=== PATIENT | male | born 1965 | race Caucasian/White ===

== ENCOUNTER 2017-09-18 19:24 | Emergency (ER) | payer SELFPAY ==
--- NOTE | 2017-09-18 19:38 | PDOC ---
Rapid Medical Evaluation Chief Complaint: Constipation Time Seen by Provider: 09/18/17 19:36 Medical Evaluation: 09/18/17 19:40 CC: constipation and rectal pain, patient reports that he has been straining. right side pain. reports increased family stress lately. PE: patient alert ox3. Pmhx: htn, DE, diabetes. PMD: Thee PLan: UA patient to the ER for further management of care.
[2017-09-18 19:55] VITALS: BP 137/95; PULSE 90; TEMP 97.8; BMI 38.9
--- NOTE | 2017-09-18 20:21 | PDOC ---
History of Present Illness - General History Source: Patient Exam Limitations: No Limitations - History of Present Illness Initial Comments: 09/18/17 20:51 The patient is a 52 year old male with no significant PMH who presents to the emergency department with rectal pain and lower abdominal pain beginning approximately 6 days ago. The patient describes his rectal pain as an intermittent squeezing, pressure-like sensation that occasionally radiates to his back and LLQ abdominal region. He denies any modifying factors for his rectal pain. He reports he has also been constipated and has had some dysuria over the past day. The patient noted some blood spotting when wiping within the past week but denies any blood intermixed with stool. He denies any recent sexual activity. The patient denies chest pain, shortness of breath, headache and dizziness. Denies fever, chills, nausea, vomit, diarrhea and constipation. Denies frequency, urgency and hematuria. Allergies: NKA Past surgical history: None reported. Social history: No reported cigarette, alcohol, or drug use. PCP: Dr. Kingston <Jose Rafael Weiner - Last Filed: 09/18/17 21:34> <Elver Veliz - Last Filed: 09/19/17 00:11> - General Chief Complaint: Pain, Acute Stated Complaint: PAIN Time Seen by Provider: 09/18/17 19:36 Past History <Jose Rafael Weiner - Last Filed: 09/18/17 21:34> - Past Medical History Cardiac Disorders: Yes ("minor heart attack") COPD: No HTN: Yes Hypercholesterolemia: Yes - Suicide/Smoking/Psychosocial Hx Smoking History: Never smoked <Elver Veliz - Last Filed: 09/19/17 00:11> - Past Medical History Allergies/Adverse Reactions: Allergies Allergy/AdvReac Type Severity Reaction Status Date / Time No Known Allergies Allergy Verified 09/18/17 19:40 Home Medications: Ambulatory Orders Aspirin [ASA -] 81 mg PO DAILY 09/18/17 Atorvastatin Ca [Lipitor] 20 mg PO HS 09/18/17 Carvedilol [Coreg -] 12.5 mg PO BID 09/18/17 Lisinopril [Zestril] 20 mg PO DAILY 09/18/17 Review of Systems - Review of Systems Able to Perform ROS?: Yes Comments:: 09/18/17 20:52 A complete review of 10 out of 10 review of systems is taken and is negative apart from what is previously mentioned below and in the HPI. <Jose Rafael Weiner - Last Filed: 09/18/17 21:34> *Physical Exam - Vital Signs Last Vital Signs Temp Pulse Resp BP Pulse Ox 97.8 F 90 16 137/95 97 09/18/17 19:43 09/18/17 19:43 09/18/17 19:43 09/18/17 19:43 09/18/17 19:43 - Physical Exam Comments: 09/18/17 21:34 Vitals: Triage Vital signs reviewed General Appearance: no acute distress, well nourished well developed, Cardiac: Regular rate and rhythm, no murmurs, no rubs, no gallops, Lungs: Clear to auscultation bilateral, good air movement bilaterally, Abdomen: (+) LLQ tenderness. Nondistended, normal bowel sounds. Rectal: Normal, Extremities: Full range of motion to all extremities, no cyanosis, clubbing, or edema Neuro: AOX3; Cranial Nerves 2-12 grossly intact, Strength intact to all extremities, Sensation intact to all extremities Psych: normal mood, normal affect <Jose Rafael Weiner - Last Filed: 09/18/17 21:34> - Vital Signs Last Vital Signs Temp Pulse Resp BP Pulse Ox 97.8 F 90 16 137/95 97 09/18/17 19:43 09/18/17 19:43 09/18/17 19:43 09/18/17 19:43 09/18/17 19:43 <Elver Veliz - Last Filed: 09/19/17 00:11> ED Treatment Course - LABORATORY CBC & Chemistry Diagram: 09/18/17 21:15 09/18/17 21:15 <Jose Rafael Weiner - Last Filed: 09/18/17 21:34> - LABORATORY CBC & Chemistry Diagram: 09/18/17 21:15 09/18/17 22:05 <Elver Veliz - Last Filed: 09/19/17 00:11> Medical Decision Making - Medical Decision Making 09/18/17 20:52 The patient is a 52 year old male with no significant PMH who presents to the emergency department with rectal pain and lower abdominal pain beginning approximately 6 days ago. Plan: Lab: CBC, CMP, UA Radiology: Abdomen & Pelvis CT, CXR <Jose Rafael Weiner - Last Filed: 09/18/17 21:34> - Medical Decision Making No acute findings on patient's CAT scan. Labs within normal limits. At this time no acute surgical process identified correlating with patient's left lower quadrant pain Repeat examination no significant pain on exam testicular exam normal Patient has GI follow-up this week he was advised to return to the emergency department for any fever severe persistent constant pain that is worsening or for any concerns. <Elver Veliz - Last Filed: 09/19/17 00:11> *DC/Admit/Observation/Transfer - Attestations Scribe Attestion: 09/18/17 20:52 Documentation prepared by Jose Rafael Weiner, acting as medical cash poster for Elver Veliz MD. <Jose Rafael Weiner - Last Filed: 09/18/17 21:34> - Discharge Dispostion Admit: No <Elver Veliz - Last Filed: 09/19/17 00:11> Diagnosis at time of Disposition: Abdominal pain Qualifiers: Abdominal location: left lower quadrant Qualified Code(s): R10.32 - Left lower quadrant pain - Discharge Dispostion Disposition: HOME - Referrals Referrals: Masha Kingston MD [Primary Care Provider] - - Patient Instructions Printed Discharge Instructions: DI for Abdominal Pain-Adult Additional Instructions: Drink plenty of fluids. [id number] Tylenol as directed on package. 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 Return to the emergency department for any fever severe persistent constant lower abdominal pain or for any concerns. - Post Discharge Activity
[2017-09-18 21:29] LABS: BASO % 0.4 % (0-2.0); EOS % 0.8 % (0-4.5); HEMATOCRIT 46.4 % (35.4-49); HEMOGLOBIN 15.2 GM/dL (11.7-16.9); LYMPH % 29.5 % (8-40); MCH 28.6 pg (25.7-33.7); MCHC 32.8 g/dl (32.0-35.9); MEAN CELL VOLUME 87.3 fl (80-96); MEAN PLT VOLUME 8.3 fl (7.5-11.1); MONO % 7.6 % (3.8-10.2); NEUT % 61.7 % (42.8-82.8); PLATELET COUNT 221 K/MM3 (134-434); RBC 5.32 M/mm3 (4.00-5.60); RDW 13.3 % (11.9-15.9); WHITE BLOOD COUNT 8.7 K/mm3 (4.0-10.0)
[2017-09-18] MEDS ORDERED: SODIUM CHLORIDE 0.9% 1000 ML INFUS.BAG IV ONE (21:32)
[2017-09-18] MEDS ORDERED: ACETAMINOPHEN 1000 MG/100 ML VIAL (NON FORMULARY) IVPB ONE (21:32)
[2017-09-18] MEDS ORDERED: ACETAMINOPHEN INJECTION 100 ML IVPB ONE (21:52)
[2017-09-18 22:11] LABS: PH,URINE 5.5 (5.0-8.0); URINE APPEARANCE CLEAR; URINE BILIRUBIN NEGATIVE (NEGATIVE); URINE BLOOD TRACE-INTA (NEGATIVE); URINE COLOR LT. YELLOW; URINE GLUCOSE (UA) NEGATIVE (NEGATIVE); URINE KETONE NEGATIVE (NEGATIVE); URINE LEUK ESTERASE NEGATIVE (NEGATIVE); URINE NITRITE NEGATIVE (NEGATIVE); URINE PROTEIN NEGATIVE (NEGATIVE); URINE UROBILINOGEN 0.2 mg/dL (0.2-1.0)
[2017-09-18 22:38] LABS: ALBUMIN 3.3 g/dl (3.4-5.0); ALK PHOS 70 U/L (45-117); ANION GAP 7 (8-16); BILIRUBIN,TOTAL 0.5 mg/dL (0.2-1.0); BLOOD UREA NITROGEN 13 mg/dL (7-18); CALCIUM 7.7 mg/dL (8.5-10.1); CHLORIDE 107 mmol/L (98-107); CO2 26 mmol/L (21-32); CREATININE 0.7 mg/dL (0.7-1.3); GLUCOSE,RANDOM 83 mg/dL (74-106); POTASSIUM 3.3 mmol/L (3.5-5.1); SGOT/AST 10 U/L (15-37); SGPT/ALT 19 U/L (12-78); SODIUM 140 mmol/L (136-145); TOT PROT 6.3 g/dl (6.4-8.2)
== END 2017-09-19 00:27 | disposition home or self-care (01) ==
LOC: JER 19:24
PROC: 3E033NZ Introduction of Analgesics, Hypnotics, Sedatives into Peripheral Vein, Percutaneous Approach (ICD-10-PCS; principal; 2017-09-18)
DX: R10.32 Left lower quadrant pain (principal); I25.2 Old myocardial infarction; I10 Essential (primary) hypertension; E78.00 Pure hypercholesterolemia, unspecified
CPT/HCPCS: 36415; 71045-TC-FY; 74177-TC; 80053; 81003; 85025; 99282-25

== ENCOUNTER 2019-07-18 09:48 | Emergency (ER) | payer OTHER ==
[2019-07-18 10:06] VITALS: BP 138/89; PULSE 79; TEMP 98; BMI 38.0
[2019-07-18 11:13] LABS: URINE APPEARANCE CLEAR; URINE BILIRUBIN NEGATIVE (NEGATIVE); URINE COLOR YELLOW; URINE GLUCOSE (UA) NEGATIVE (NEGATIVE); URINE KETONE NEGATIVE (NEGATIVE); URINE LEUK ESTERASE NEGATIVE (NEGATIVE); URINE NITRITE NEGATIVE (NEGATIVE); URINE PROTEIN NEGATIVE (NEGATIVE); URINE UROBILINOGEN 0.2 mg/dL (0.2-1.0)
--- NOTE | 2019-07-18 11:24 | PDOC ---
*Physical Exam - Vital Signs Last Vital Signs Temp Pulse Resp BP Pulse Ox 98 F 79 17 138/89 98 07/18/19 10:03 07/18/19 10:03 07/18/19 10:03 07/18/19 10:03 07/18/19 10:03 ED Treatment Course - ADDITIONAL ORDERS Additional order review: Laboratory Results 07/18/19 11:01 Urine Color Yellow Urine Appearance Clear Urine pH 5.0 Ur Specific [place] 1.021 Urine Protein Negative Urine Glucose (UA) Negative Urine Ketones Negative Urine Blood Negative Urine Nitrite Negative Urine Bilirubin Negative Urine Urobilinogen 0.2 Ur Leukocyte Esterase Negative Medical Decision Making - Medical Decision Making 07/18/19 11:24 Pt seen by Midlevel Provider under my direct supervision Mr. Butcher is a 54 yo M h/o constipation having 2 weeks or hard stools and rectal pain with bowel movement Pt examined Pt with mild suprapubic discomfort without guarding or rebound. Rectal examination per PA Zhang Ancillary studies reviewed Xray with no SBO, or fecal impaction I agree with plan as outlined by Midlevel Provider Will give bowel regimen F/u GI 07/19/19 18:50 Discharge - Discharge Information Problems reviewed: Yes Clinical Impression/Diagnosis: Rectal bleed Constipation Qualifiers: Constipation type: chronic idiopathic constipation Qualified Code(s): K59.04 - Chronic idiopathic constipation Condition: Improved Disposition: HOME - Admission No - Additional Discharge Information Prescriptions: Docusate Sodium [Colace -] 100 mg PO BID #14 capsule - Follow up/Referral Referrals: Candice Monique MD [Primary Care Provider] - - Patient Discharge Instructions Patient Printed Discharge Instructions: DI for Hemorrhoids, DI for Constipation Additional Instructions: Your urine labs and x-rays is normal. Continue with increased fiber intake for constipation. Take prescribed stool softener as prescribed. Follow-up with your GI doctor for colonoscopy as scheduled on - Post Discharge Activity Work/Back to School Note: Back to Work
--- NOTE | 2019-07-18 11:35 | PDOC ---
History of Present Illness - General Chief Complaint: Hemorrhoids Stated Complaint: BACK PAIN Time Seen by Provider: 07/18/19 10:45 History Source: Patient Exam Limitations: Clinical Condition - History of Present Illness Initial Comments: 07/18/19 11:38 Patient with history of constipation presented with complaint of 2 weeks history of hard stools and rectal pain with bowel movement which lasted a few minutes after bowel movement. Patient also reported intermittent suprapubic discomfort. Denies urinary frequency, burning with urination, urinary urgency. Patient reported had blood thinks to 2 weeks ago and was to check make sure he does not have hemorrhoids. Denies any other symptoms. Patient reported having 3 bowel movements a day which is hard stools. Patient having appointment with GI on the of next month for colonoscopy. He denies any other symptoms Is this a multiple visit Asthma Patient?: No Timing/Duration: other (2 weeks) Past History - Past Medical History Allergies/Adverse Reactions: Allergies Allergy/AdvReac Type Severity Reaction Status Date / Time No Known Allergies Allergy Verified 07/18/19 10:03 Home Medications: Ambulatory Orders Aspirin [ASA -] 81 mg PO DAILY 09/18/17 Atorvastatin Ca [Lipitor] 20 mg PO HS 09/18/17 Carvedilol [Coreg -] 12.5 mg PO BID 09/18/17 Lisinopril [Zestril] 20 mg PO DAILY 09/18/17 Docusate Sodium [Colace -] 100 mg PO BID #14 capsule 07/18/19 Cardiac Disorders: Yes ("minor heart attack") COPD: No HTN: Yes Hypercholesterolemia: Yes - Immunization History Immunization Up to Date: Yes - Psycho Social/Smoking Cessation Hx Smoking History: Never smoked Hx Alcohol Use: No Drug/Substance Use Hx: No Review of Systems - Review of Systems Able to Perform ROS?: Yes Is the patient limited Tog[place]ese proficient: No Constitutional: No: Fever, Malaise, Weakness HEENTM: No: Symptoms Reported Respiratory: No: Symptoms reported, See HPI, Cough, Orthopnea, Shortness of Breath, SOB with Exertion, SOB at Rest, Stridor, Wheezing, Productive cough, Hemoptysis, Other Cardiac (ROS): No: Symptoms Reported, See HPI, Chest Pain, Edema, Irregular Heart Rate, Lightheadedness, Palpitations, Syncope, Chest Tightness, Other ABD/GI: Yes: Symptoms Reported, See HPI, Blood Streaked Bowels (resolved), Constipated, Rectal Bleeding (2 weeks ago. resolved), Abdominal cramping ( intermittent cramping on suprapbic area). No: Abdominal Distended, Abd. Pain w / defecation, Diarrhea, Difficulty Swallowing, Nausea, Poor Appetite, Vomiting, Indigestion : No: Symptoms Reported, Dysuria, Discharge, Frequency, Flank Pain, Incontinence, Urgency, Testicular Mass, Testicular Swelling, Testicular Pain Musculoskeletal: No: Symptoms Reported All Other Systems: Reviewed and Negative *Physical Exam - Vital Signs Last Vital Signs Temp Pulse Resp BP Pulse Ox 98 F 79 17 138/89 98 07/18/19 10:03 07/18/19 10:03 07/18/19 10:03 07/18/19 10:03 07/18/19 10:03 - Physical Exam General Appearance: Yes: Nourished, Appropriately Dressed. No: Apparent Distress HEENT: positive: Normal ENT Inspection, Pharynx Normal Neck: positive: Supple Respiratory/Chest: positive: Lungs Clear, Normal Breath Sounds. negative: Respiratory Distress, Accessory Muscle Use Cardiovascular: positive: Regular Rhythm, Regular Rate Gastrointestinal/Abdominal: positive: Normal Bowel Sounds, Tender (mild suprapubic discomfort), Flat, Soft. negative: Organomegaly, Distended, Guarding , Rebound, Hernia, Mass Male Genitalia: positive: normal genitalia, normal prostate. negative: testicular tenderness Rectal Exam: positive: heme negative stool, normal exam Extremity: positive: Normal Inspection Integumentary: positive: Normal Color Neurologic: positive: Fully Oriented, Alert, Normal Mood/Affect, Normal Response ED Treatment Course - ADDITIONAL ORDERS Additional order review: Laboratory Results 07/18/19 11:01 Urine Color Yellow Urine Appearance Clear Urine pH 5.0 Ur Specific [place] 1.021 Urine Protein Negative Urine Glucose (UA) Negative Urine Ketones Negative Urine Blood Negative Urine Nitrite Negative Urine Bilirubin Negative Urine Urobilinogen 0.2 Ur Leukocyte Esterase Negative - RADIOLOGY Radiology Studies Ordered: Category Date Time Status KUB (KID UR & BLAD) [RAD] Stat Radiology 07/18/19 10:55 Completed Medical Decision Making - Medical Decision Making 07/18/19 11:39 Patient with history of constipation presented with complaint of 2 weeks history of hard stools and rectal pain with bowel movement which lasted a few minutes after bowel movement. Patient also reported intermittent suprapubic discomfort. Denies urinary frequency, burning with urination, urinary urgency. Patient reported had blood thinks to 2 weeks ago and was to check make sure he does not have hemorrhoids. Denies any other symptoms. Patient reported having 3 bowel movements a day which is hard stools. Patient having appointment with GI on the of next month for colonoscopy. He denies any other symptoms Clinical exam unremarkable except mild suprapubic discomfort without guarding or rebound. No CVA tenderness. No hemorrhoids on rectal exam and no blood or fissure to rectum. UA unremarkable and KUB abdominal x-ray shows no acute pathology. Patient symptoms likely rectal pain from hard stool from constipation and stable for discharge on Colace twice daily stool softener with advised to increase fluid intake and fiber intake as has been doing with GI follow-up as scheduled. Patient stable for discharge Discharge - Discharge Information Problems reviewed: Yes Clinical Impression/Diagnosis: Rectal bleed Constipation Qualifiers: Constipation type: chronic idiopathic constipation Qualified Code(s): K59.04 - Chronic idiopathic constipation Condition: Improved Disposition: HOME - Admission No - Additional Discharge Information Prescriptions: Docusate Sodium [Colace -] 100 mg PO BID #14 capsule - Follow up/Referral Referrals: Candice Monique MD [Primary Care Provider] - - Patient Discharge Instructions Patient Printed Discharge Instructions: DI for Hemorrhoids, DI for Constipation Additional Instructions: Your urine labs and x-rays is normal. Continue with increased fiber intake for constipation. Take prescribed stool softener as prescribed. Follow-up with your GI doctor for colonoscopy as scheduled on - Post Discharge Activity
== END 2019-07-18 11:48 | disposition home or self-care (01) ==
LOC: JER 09:48 → JERFT 09:48 → JER 11:48
DX: K59.00 Constipation, unspecified (principal); I25.10 Atherosclerotic heart disease of native coronary artery without angina pectoris; I10 Essential (primary) hypertension; E78.00 Pure hypercholesterolemia, unspecified; Z79.82 Long term (current) use of aspirin
CPT/HCPCS: 74018-TC-FY; 81003; 87086; 99281-25

== ENCOUNTER 2020-11-02 04:48 | Day surgery (SDC) | payer OTHER ==
[~2020-11-02 04:48] MED LIST: BUPIVACAINE HCL/PF 0.5% (5MG/ML) 10 ML VIAL IJ ONE
[2020-11-02 10:10] LABS: HEMOGLOBIN 14.7 GM/dL (11.7-16.9); MCH 29.5 pg (25.7-33.7); MCHC 33.4 g/dl (32.0-35.9); MEAN CELL VOLUME 88.4 fl (80-96); MEAN PLT VOLUME 8.3 fl (7.5-11.1); PLATELET COUNT 198 K/MM3 (134-434); RBC 4.98 M/mm3 (4.00-5.60); RDW 13.6 % (11.9-15.9); URINE APPEARANCE CLEAR; URINE BILIRUBIN NEGATIVE (NEGATIVE); URINE COLOR YELLOW; URINE GLUCOSE (UA) NEGATIVE (NEGATIVE); URINE KETONE NEGATIVE (NEGATIVE); URINE LEUK ESTERASE NEGATIVE (NEGATIVE); URINE NITRITE NEGATIVE (NEGATIVE); URINE PROTEIN NEGATIVE (NEGATIVE); URINE UROBILINOGEN 0.2 mg/dL (0.2-1.0); WHITE BLOOD COUNT 6.1 K/mm3 (4.0-10.0)
[2020-11-02 10:11] VITALS: BMI 41.0
[2020-11-02 10:16] LABS: INR 1.08 (0.83-1.09); PROTHROMBIN TIME (PATIENT) 13.3 SEC (9.7-13.0)
[2020-11-02 10:29] LABS: ALBUMIN 3.6 g/dl (3.4-5.0); BLOOD UREA NITROGEN 13.6 mg/dL (7-18); CALCIUM 9.1 mg/dL (8.5-10.1)
[2020-11-02 10:31] LABS: CREATININE 0.9 mg/dL (0.55-1.3)
[2020-11-02 10:33] LABS: TOT PROT 7.5 g/dl (6.4-8.2)
[2020-11-02 10:34] LABS: BILIRUBIN,TOTAL 0.4 mg/dL (0.2-1)
[2020-11-02] MEDS ORDERED: MIDAZOLAM HCL 2 MG/2 ML SINGLE DOSE VIAL ONE ×2 (12:11→12:17)
[2020-11-02] MEDS ORDERED: PROPOFOL 20 ML ONE ×2 (12:17→12:22)
[2020-11-02] MEDS ORDERED: ceFAZolin SODIUM 1 GM VIAL ONE (12:26)
[2020-11-02] MEDS ORDERED: SODIUM CHLORIDE 0.9% P/F 10 ML VIAL IJ ONE (12:26)
[2020-11-02] MEDS ORDERED: ONDANSETRON 4 MG/2 ML VIAL ONE (12:30)
[2020-11-02] MEDS ORDERED: ceFAZolin SODIUM 1 GM VIAL IVPB ONE (12:30)
[2020-11-02] MEDS ORDERED: KETOROLAC TROMETHAMINE 30 MG/1 ML VIAL ONE (12:33)
[2020-11-02] MEDS ORDERED: BUPIVACAINE HCL/PF 0.5% (5MG/ML) 10 ML VIAL IJ ONE (13:00)
[2020-11-02] MEDS ORDERED: PROMETHAZINE HCL 25 MG/1 ML VIAL IVPUSH PRN (13:18)
[2020-11-02] MEDS ORDERED: ONDANSETRON 4 MG/2 ML VIAL IVPUSH PRN (13:18)
[2020-11-02] MEDS ORDERED: ACETAMINOPHEN 1000 MG/100 ML VIAL (NON FORMULARY) IVPB ONE (13:18)
[2020-11-02] MEDS ORDERED: oxyCODONE HCL 5 MG TABLET PO PRN (13:18)
[2020-11-02] MEDS ORDERED: LACTATED RINGERS SOLUTION 1,000 ML IV SCH (13:30)
[2020-11-02 15:55] VITALS: PULSE 60; TEMP 97.5
[2020-11-02 15:58] VITALS: BP 96/63
== END 2020-11-02 15:40 | disposition home or self-care (01) ==
LOC: JASU-SURG 04:48
PROVIDERS: ATTEND Orthopaedic Surgery
PROC: 0SBC4ZZ Excision of Right Knee Joint, Percutaneous Endoscopic Approach (ICD-10-PCS; 2020-11-02)
PROC: 0SBC4ZZ Excision of Right Knee Joint, Percutaneous Endoscopic Approach (ICD-10-PCS; principal; 2020-11-02 11:30)
DX: S83.241A Other tear of medial meniscus, current injury, right knee, initial encounter (principal); M17.11 Unilateral primary osteoarthritis, right knee; M65.861 Other synovitis and tenosynovitis, right lower leg; X58.XXXA Exposure to other specified factors, initial encounter; Y92.9 Unspecified place or not applicable; Y93.9 Activity, unspecified
CPT/HCPCS: 36415; 80053; 81003; 85027; 85610; 88304-TC; 93005; 93010; 94760; J0131